=== PATIENT | male | born 1955 | race Two or more races ===

== ENCOUNTER 2023-04-28 18:23 | Emergency (ER) | payer OTHER ==
[~2023-04-28] VITALS: Ht 177.8 cm; Wt 148.8 kg
[2023-04-28] MEDS ORDERED: EFFIENT10 MG PO (18:38)
[2023-04-28] MEDS ORDERED: LASIX40 MG PO (18:38)
[2023-04-28] MEDS ORDERED: ISOSORBIDE DINI30 MG PO (18:38)
[2023-04-28] MEDS ORDERED: POTASSIUM ACID T1 GM PO (18:38)
[2023-04-28] MEDS ORDERED: CHILDREN'S ASPI81 MG PO (18:39)
[2023-04-28] MEDS ORDERED: LYRICA100 MG PO (18:39)
[2023-04-28] MEDS ORDERED: ZESTRIL10 M1 PO (18:39)
[2023-04-28] MEDS ORDERED: CARVEDILOL3.125 M1 PO (18:39)
[2023-04-28] MEDS ORDERED: LYRICA150 MG PO (18:40)
[2023-04-28] MEDS ORDERED: SIMVASTATIN5 MG PO (18:40)
[2023-04-28 19:51] LABS: ABG PH 7.391 (7.35-7.45); ABG PO2 87.2 mmHg (80-100); ABG pCO2 50.8 mmHg (35-45); BICARBONATE 30.2 mmol/l (23-25); SaO2 96.6 %; Tco2 31.7 mmol/l; o2 21 %
[2023-04-28 19:52] LABS: allen test SATISFACTORY; puncture site RADIAL RIGHT
== END 2023-04-28 20:07 | disposition home or self-care (01) ==
LOC: ER 18:23
PROVIDERS: General Practice
DX: R06.09 Other forms of dyspnea (principal); E11.9 Type 2 diabetes mellitus without complications; J44.9 Chronic obstructive pulmonary disease, unspecified; I10 Essential (primary) hypertension; Z99.81 Dependence on supplemental oxygen